=== PATIENT | female | born 1960 ===

== ENCOUNTER 2024-04-06 07:38 | Outpatient (AMB) | payer BC, SELFPAY ==
--- NOTE | 2024-04-06 08:14 | A.OFFVIS_ITS ---
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 She started with neck pain around 2009 and in 2014 she saw a neurologist Dr. Chu at [facility] She had MRI Brain in 2014 which showed white matter changes. she was later seen by Dr. Serrano and treated with Botox with good response. After Dr. Soto retired, she saw Dr. Pérez and then transferred to Dr. [place] Delgadillo at [facility] - who left 1 year ago . Her last treatment with Botox with Jan 2023 . Since then she has been having pain , stiffness, tremors in her neck and wants to restart Botox. when her neck is worse she also has some facial numbness . she was evaluated for facial numbness in 2014. she has occasional off balance.she denies urinary incontinence. [facility] Medical History Squamous cell carcinoma in situ Lyme disease Cervical spinal stenosis Breast cancer in female Asthma Surgical History H/O hernia repair History of carpal tunnel release H/O breast biopsy H/O lumpectomy Hx of colonoscopy H/O shoulder surgery Family History Mother Hyperlipidemia HTN (hypertension) Father CAD (coronary artery disease) HTN (hypertension) Brother Asthma HTN (hypertension) Brother Asthma HTN (hypertension) Brother Asthma HTN (hypertension) Son Asthma Social History Alcohol intake: current Patient Tobacco Use Status: Never used Tobacco Physical Exam Vital Signs: Last Vital Signs BP 130/80 04/06/24 08:17 BMI result Body Mass Index 22.4 Const General: cooperative, healthy appearing, comfortable and no acute distress Nutritional Appearance: average body habitus Orientation/consciousness: patient oriented x3 Eyes Pupils: Equal, round and reactive pupils present Neuro Other: right laterocollis and mild retrocollis torticollis Head tremors Tenderness and tightness in right levator splenius, left occipitalis, semispinal is General: patient oriented x3, gait normal, tone normal, moves all extremities and no focal motor deficits Cranial nerves: Yes Facial sensation intact/muscles of mastication intact, Yes Equal, round and reactive pupils present, Yes Bilaterally intact EOM present, Yes Nystagmus not present, Yes Normal facial strength present, Yes Midline tongue present, Yes Symmetric palate elevation present and Yes Ability to bilaterally elevate shoulders present Cognition (Neuro): normal cognition Gait exam (Neuro): Normal gait present Motor exam (neuro): 5/5 motor strength present throughout and Normal motor muscle tone present throughout Deep tendon reflexes (DTR's): Right triceps reflex intensity grade: 2+, Left triceps reflex intensity grade: 2+, Rt Biceps (C5, C6): 2+, Left biceps reflex intensity grade: 2+, Right brachioradialis reflex intensity grade: 2+, Left brachioradialis reflex intensity grade: 2+, Right patellar reflex intensity grade: 2+ and Left patellar reflex intensity grade: 2+ Coordination: [id number] test normal Assessment & Plan Assessment & Plan (1) Cervical dystonia: Code(s): G24.3 - Spasmodic torticollis Category: Medical (2) Cervicalgia: Code(s): M54.2 - Cervicalgia Category: Medical Plan Reviewed notes from Dr. Delgadillo and I will schedule her for MRI C spine Get prior approval form insurance and restart BOTOX for her neck. Orders: Orders MR cervical spine wo con Today G24.3 - Spasmodic torticollis, M54.2 - Cervicalgia Coding Level of Care Code New Pt Level 4 (36901) Complex EM visit Add On G2211 Diagnoses Cervical dystonia G24.3 Cervicalgia M54.2
[2024-04-06 08:17] VITALS: BP 130/80; BMI 22.4
== END 2024-04-06 10:06 | disposition home or self-care (01) ==
PROVIDERS: PCP Nurse Practitioner Adult Health; Visit Provider Psychiatry & Neurology Neurology
DX: G24.3 Spasmodic torticollis (principal); M54.2 Cervicalgia
CPT/HCPCS: 99204

== ENCOUNTER 2024-04-23 08:15 | Outpatient (AMB) | payer BC, SELFPAY ==
--- NOTE | 2024-04-23 08:16 | A.OFFVIS_ITS ---
Vital Signs 04/23/24 08:17 Height 5 ft 3 in Weight 126 lb BMI 22.3 Intake Visit Reasons: Botox Intake Note: Patient presents for Botox injection. Allergies morphine Allergy (Mild, Uncoded 04/23/24 08:25) Rash HPI Comments Details: ? 64y/o female comes here for treatment of her cervical dystonia with botox. Side effects including spread of toxin effect, dysphagia, breathing difficulties , bronchitis etc was discussed in detail and the patient agreed to the procedure.An informed consent was obtained ??? Botulinum toxin type A 200units X 1 -was diluted with 2 cc of normal saline at a concentration of 25 units in 0.5cc saline. Lot number [id number] expiration 06/2026 ??? Muscles injected ??? mario Splenius - 25 units each ??? left levator 50 units each right levator 25 Left semispinalis 25 units Left trapezius 25 units Right trapezius 25 units ? Total used 200 units PFS Medical History Cervical dystonia Cervicalgia Squamous cell carcinoma in situ Lyme disease Cervical spinal stenosis Breast cancer in female Asthma Surgical History H/O hernia repair History of carpal tunnel release H/O breast biopsy H/O lumpectomy Hx of colonoscopy H/O shoulder surgery Family History Mother Hyperlipidemia HTN (hypertension) Father CAD (coronary artery disease) HTN (hypertension) Brother Asthma HTN (hypertension) Brother Asthma HTN (hypertension) Brother Asthma HTN (hypertension) Son Asthma Social History Alcohol intake: current Patient Tobacco Use Status: Never used Tobacco Physical Exam Vital Signs: BMI result Body Mass Index 22.3 Const General: cooperative, healthy appearing, comfortable and no acute distress Nutritional Appearance: average body habitus Orientation/consciousness: patient oriented x3 Neuro Other: right laterocollis and mild retrocollis torticollis Head tremors Tenderness and tightness in right levator splenius, left occipitalis, semispinalis General: patient oriented x3, gait normal, tone normal, moves all extremities and no focal motor deficits Cognition (Neuro): normal cognition Gait exam (Neuro): Normal gait present Motor exam (neuro): 5/5 motor strength present throughout and Normal motor m uscle tone present throughout Coordination: [id number] test normal Office Procedures Botulinum toxin Injection 84488 - Migraine Procedure code (CPT) selection complete Office Meds onabotulinumtoxinA 200 unit solution for injection Performing Provider: Nusrat Delgado MD Performing Location: [facility] Administered by: Nusrat Delgado MD on 04/23/24 09:01 Dose Route Admin Location Dispensed Lot Number Expiration Date [facility] [place] 200 unit IM 200 units [id number] ALLERGAN/BOTOX Comments: see hpi Assessment & Plan Assessment & Plan (1) Cervical dystonia: Code(s): G24.3 - Spasmodic torticollis Category: Medical Plan Patient tolerated the procedure well she will call with any side effects Orders: Orders AMB Botulinum toxin Injection - Patient Supplied N/C Today G24.3 - Spasmodic torticollis Medications: New onabotulinumtoxinA 200 units IM ONCE 1 ea 0RF cervical dystonia G24.3 - Spasmodic torticollis Coding Level of Care Code Est Pt Level 1 (10020) Diagnoses Cervical dystonia G24.3 CPT Codes Botox Injection - Botox 3: 48627 - Migraine ([id number])
[2024-04-23 08:17] VITALS: BMI 22.3
--- OUTSIDE RECORDS SUMMARY | 2024-04-23 08:23 | XMS_ITS | Continuity of Care Document ---
Author Organization [place] - [facility], [address] floor Address [address] [place] [address] Care Team Providers Care Cardiac Nurse Name Role Phone [facility] Primary Care Provider Assessment Encounter Date Assessment Date Assessment LastModified by Organization Details LastModified Time 04/20/2024 04/20/2024 CC Right elbow pain, arthritis post traumatic, for corticosteroid injection HPI 64 y/o female reports stable symptoms since last visit. Electic to continue with regular steroid injections for elbow pain relief. EXAM Right upper extremity elbow enlarged mild, no effusion, ROM 0-140 with full forearm rotation, no warmth A/P Right elbow post traumatic osteoarthritis. Symptoms managed to patient satisfaction with corticosteroid injections. Procedure note Right elbow - betadine prep injection over lateral joint and over ulnohumeral joint, and admixture of 1 cc kenalog 40 mg/cc and 1 cc local anesthetic total, given at the two sites, tolerated well Recheck in 3-4 mos/likely repeat injection Not available 04/20/2024 14:46:36 Plan of Treatment Reminders Order Date Submit Date Provider Last Modified By Organization Details Last Modified Time Details Appointments RECHECK 15 2024 01:00P Shayy Hong MD Not available Not available Not available Lab None recorded . Referral None recorded . Procedures None recorded . Surgeries None recorded . Imaging XR, elbow, 3 or more view - rt elbow 3v recheck 315 2023 024 yaw [facility], [address], [address], [place], [address], 04/20/2024 14:52:21 Medication Orders None recorded . Patient TargetsNo targets recorded. Patient InstructionsNo instructions recorded. Reason for Referral None Reported. Problems Name Problem SNOMED Code Status Onset Date Resolution Date Notes Provider Name and Address Organization Details Recorded Time Elbow fracture 666384877 Active 2023 Kina Hong MD [facility] [address], [facility] [place], [address] , [facility] 4 11:22:19 Closed fracture of head of right radius 636853693165 Active 2015 Problem Code: S52.121D ; Problem Code Type: ICD-10; Status: 'A'; Not Available [facility] 4 11:12:54 Closed fracture of proximal end of right ulna 224905256196 28050 Active 2015 Problem Code: S52.001A ; Problem Code Type: ICD-10; Status: 'A'; Not Available [facility] 4 11:12:55 Loosening of prosthesi s 239735173 Active 2016 Problem Code: T84.038A ; Problem Code Type: ICD-10; Status: 'A'; Not Available [facility] 4 11:12:55 Sprain of right ankle 211517702963 30251 Active 2015 Problem Code: S93.491D ; Problem Code Type: ICD-10; Status: 'A'; Not Available [facility] 4 11:12:55 Sprain, elbow joint, medial collatera l ligament 199902907 Active 2015 Problem Code: S53.441D ; Problem Code Type: ICD-10; Status: 'A'; Not Available [facility] 4 11:12:55 Closed fracture of proximal end of ulna 60947749 Active 2015 Problem Code: S52.001D ; Problem Code Type: ICD-10; Status: 'A'; Not Available [facility] 4 11:12:56 Pain in right hip joint 804275740841 102 Active 2015 Problem Code: M25.551; Problem Code Type: ICD-10; Status: 'A'; Not Available [facility] 4 11:12:56 Contractu re of right elbow joint 455278314988 100 Active 2016 Problem Code: M24.521; Problem Code Type: ICD-10; Status: 'A'; Not Available [facility] 4 11:12:56 Post traumatic osteoarth ritis 543664909 Active 2018 Problem Code: M19.121; Problem Code Type: ICD-10; Status: 'A'; Not Available [facility] 4 11:12:56 Problem Notes None recorded. Medical Equipment None Reported. Allergies Allergen ID Allergen Name Allergen Category Reaction Reaction Severity Criticality Documentation Date Start Date Code Code System Note Provider Name and Address Organization Details Recorded Time 522019 morphine sulfate medicatio n Not available Not available Not available 10/14/20232023 40751 RxNorm Not Available [facility] 4 09:09:11 57074 morphine sulfate medicatio n Not available Not available Not available 06/23/20232009 76814 RxNorm AIDA ovalles [place] - [facility] 4 10:52:46 Medications Name Sig Start Date Stop Date Status Note LastModified by Organization Details LastModified Time meloxicam 15 mg tablet TAKE 1 TABLET BY MOUTH DAILY active Not Available Not Available No t Available lorazepam 1 mg tablet TAKE 1 TABLET BY MOUTH TWICE DAILY NEEDED FOR ANXIETY active Not Available Not Available No t Available propranolol 20 mg tablet TAKE 1 TABLET BY MOUTH TWICE DAILY active Not Available Not Available No t Available magnesium active Not Available Not Landy ilable Not Available Calcium 600 active Not Available Not A vailable Not Available Vitamin D3 active Not Available Not Av ailable Not Available multivitamin active Not Available Not Available Not Available collagen active Not Available Not Avai lable Not Available oxycodone HCl-oxycodon e-ASA 1 TAB PO QID 09/15 completed Statu s: 'Curr ent'; Not Available Not Available Not Available GaviLyte-G 236 gram-22.74 gram-6.74 gram-5.86 gram oral solution 09/15 completed Not Available Not Available Not Available Botox 200 unit injection active Not Available Not Available No t Available B12 active Not Available Not Availa ble Not Available Vitals Date Recorded Body height Body mass index (BMI) Body weight Provider Name and Address Organization Details Last Updated DateTime 04/20/2024 162.56 cm 20.3 kg/m2 43285.9 g AIDA GILBERT [place] - [facility] 04/20/2024 10:22:59 Social History None recorded. Functional Status None recorded. Mental Status None recorded. Family History Nothing Reported. Medical History Condition Response Allergies/Hayfever N Coronary Artery Disease N Anxiety/Depression N Breathing or lung disorders N Emphysema N Nerve Disorders N Thyroid Problems N COPD N Pacemaker N Anemia N Kidney/Bladder Problems N Vascular Disease N Heart Trouble N Heart Attack ([place]) N Gastrointestinal Disease N Cholesterol N Diabetes N Autoimmune disease N Bleeding Disorder N Inflammatory Joint disease N Orthotics N Arthritis Y Seizures/Epilepsy N Blood Clot N AIDS/HIV N Congestive Heart Failure (CHF) N Acid Reflux (GERD) N Cancer Y Stroke N Asthma N Circulation Problems N Peripheral Vascular Disease N Sleep Apnea N Hepatitis N Heart Disease N Rheumatoid Arthritis N Arrhythmia N Pulmonary Embolism N Headaches N Fibromyalgia N Hypertension Y Osteoporosis N Gynecological HistoryNo gynecological history recorded. Obstetrics History GPAL:G 0 P 0 0 0 0 Past Encounters Encounter ID Performer Location Encounter Start Date Encounter Closed Date Diagnosis/Indication Diagnosis SNOMED-CT Code Diagnosis ICD10 Code [id number] Kina Hogn [facility] [address] [place] [address] 04/20/2024 10:13:45 04/20/2024 14:47:09 Elbow fracture 040467732 S42.401D Health Concerns Section Related Observation LastModified by Organization Detai ls LastModified Time None Recorded Concern Status LastModified by Organization Details LastModified Time None Recorded Payers Encounter Date Sequence Insurance Name Policy Number Policy Diaz Covered Member ID Diaz Member ID Guarantor Name 04/20/2024 1 [place] [id number] Orlin Isaacs [id number] Samina Isaacs OBGyn Episode No OBEpisode recorded.
--- OUTSIDE RECORDS SUMMARY | 2024-04-23 08:23 | XMS_ITS | Data Portability ---
Author Organization [place] [facility] Address [address] [place] [address] Care Team Providers Care Manuscript Reader Name Role Phone [facility] Primary Care Provider Assessment Encounter Date Assessment Date Assessment LastModified by Organization Details LastModified Time 09/16/2023 09/16/2023 CC Right elbow pain, arthritis post traumatic, injection HPI 63 y/o woman more than 2 years s/p right elbow fx dislocation, ORIF, with early progression to OA, removal of radial head prosthesis, evaluated with Dr. Jack [facility] for reconstruction, prefers nonoperative management, symptoms maanged with periodic/sachedul ed CSI Reports increase lateral elbow pain about three weeks ago, since immproved, no clear reltaiton to activity or other EXAM Right upper extremity elbow enlarged, no effusion, ROM 0-140 with full forearm rotation, no warmth XRAYS ordered obtained reviewed by me R elbow three veiws show progresssive degenerative errosive ulnohumeral changes and absent radial head A/P Right elbow post traumatic osteoarthitis. No sigifniciatn changes on xrays compared to last ~ 2 years ago. Symptoms recently increased but since resolved. Continue with csi, patient preference Procedure note Right elbow - betadine prep injection over lateral joint and over ulno humeral joint, and admixture of 1 cc kenalog 40 mg/cc and 1 cc local anesthesitic total given at the two sites, tolerated well Recheck in 3 mos/likely repeat injection Not available 09/17/2023 17:44:13 12/16/2023 12/16/2023 CC Right elbow pain, arthritis post traumatic, for corticosteroid injection HPI 63 y/o woman more than 2 years s/p right elbow fx dislocation, ORIF, with early progression to OA, removal of radial head prosthesis, evaluated with Dr. Jack [facility] for reconstruction, prefers nonoperative management, symptoms maanged with periodic/sachedul ed CSI Since last visit reports right elbow symptoms stable. Right elbow injections continue to provide symptom relief. EXAM Right upper extremity elbow enlarged mild, no effusion, ROM 0-140 with full forearm rotation, no warmth A/P Right elbow post traumatic osteoarthritis. No significant changes on xrays compared to last ~ 2 years ago. Symptoms remain stable and positively affected by corticosteroid injection. Procedure note Right elbow - betadine prep injection over lateral joint and over ulnohumeral joint, and admixture of 1 cc kenalog 40 mg/cc and 1 cc local anesthetic total, given at the two sites, tolerated well Recheck in 3-4 mos/likely repeat injection Not available 12/19/2023 11:32:02 04/20/2024 04/20/2024 CC Right elbow pain, arthritis [...] well Recheck in 3-4 mos/likely repeat injection [email or web address] Not available 04/20/2024 14:46:36 Plan of Treatment [...] rt elbow 3v recheck 315 2023 024 [facility], [address], [address], [place], [address], 09/25/2023 16:00:10 XR, elbow, 3 or more view - rt elbow 3v recheck 315 2023 024 [email or web address] [facility], [address], [address], [place], [address], 12/19/2023 12:02:41 XR, elbow, 3 or more view - rt elbow 3v recheck 315 2023 024 [email or web address] [facility], [address], [place], [address], 04/20/2024 14:52:21 Medication Orders None recorded . Patient TargetsNo targets recorded. Patient InstructionsNo instructions recorded. Reason for Referral None Reported. Results Created Date Observation Date Name Description Value Unit Range Abnormal Flag Note LastModifiedBy Organization Detail LastModifiedTime 12/20/19 24 04/19/2019 imagi ng/di agnos tic resul t No observ ation record ed. [email or web address] Not Available 11/21 06:31:34 12/20/1903/30/2019 imagi ng/di agnos tic resul t No observ ation record ed. [email or web address] Not Available 11/21 06:31:36 12/20/19 24 04/09/2019 imagi ng/di agnos tic resul t No observ ation record ed. [email or web address] Not Available 11/21 06:31:37 12/20/1904/06/2019 imagi ng/di agnos tic resul t No observ ation record ed. [email or web address] Not Available 11/21 06:31:38 Result Notes None recorded. Problems Name Problem SNOMED Code Status Onset Date Resolution Date Notes Provider Name and Address Organization Details Recorded Time Elbow fracture 079057480 Active 2023 Kina Hong MD [address], [place], [address] , [facility] 4 11:22:19 Closed fracture of head of right radius 870194902367 98541 Active 2015 Problem Code: S52.121D ; Problem Code Type: ICD-10; Status: 'A'; Not Available [employer] 4 11:12:54 Closed fracture of proximal end of right ulna 532325480382 65106 Active 2015 Problem Code: S52.001A ; Problem Code Type: ICD-10; Status: 'A'; Not Available [facility] 4 11:12:55 Loosening of prosthesi s 051038326 Active 2016 Problem Code: T84.038A ; Problem Code Type: ICD-10; Status: 'A'; Not Available [facility] 4 11:12:55 Sprain of right ankle 441777954105 35914 Active 2015 Problem Code: S93.491D ; Problem Code Type: ICD-10; Status: 'A'; Not Available [facility] 4 11:12:55 Sprain, elbow joint, medial collatera l ligament 999955556 Active 2015 Problem Code: S53.441D ; Problem Code Type: ICD-10; Status: 'A'; Not Available [facility] 4 11:12:55 Closed fracture of proximal end of ulna 84054459 Active 2015 Problem Code: S52.001D ; Problem Code Type: ICD-10; Status: 'A'; Not Available [facility] 4 11:12:56 Pain in right hip joint 341068420222 102 Active 2015 Problem Code: M25.551; Problem Code Type: ICD-10; Status: 'A'; Not Available [facility] 4 11:12:56 Contractu re of right elbow joint 386076217245 100 Active 2016 Problem Code: M24.521; Problem Code Type: ICD-10; Status: 'A'; Not Available [facility] 4 11:12:56 Post traumatic osteoarth ritis 138186681 Active 2018 Problem Code: M19.121; Problem Code Type: ICD-10; Status: 'A'; Not Available [facility] 4 11:12:56 Problem Notes None recorded. Procedures Surgical History None recorded. Imaging Results Imaging Date Name Status LastModified by [facility] Details LastModified Time 04/19/2019 imaging/diag nostic result completed Information not available 12/20/2023 06:31:34 2019 imaging/diag nostic result completed Information not available 12/20/2023 06:31:36 04/09/2019 imaging/diag nostic result completed Information not available 12/20/2023 06:31:37 04/06/2019 imaging/diag nostic result completed Information not available 12/20/2023 06:31:38 Procedure Notes None recorded. Medical Equipment None Reported. Allergies Allergen ID Allergen Name Allergen Category Reaction Reaction Severity Criticality Documentation Date Start Date Code Code System Note Provider Name and Address Organization Details Recorded Time 175223 morphine sulfate medicatio n Not available Not available Not available 10/14/20232023 69927 RxNorm Not Available [facility] 09:09:11 38147 morphine sulfate medicatio n Not available Not available Not available 06/23/20232009 62500 RxNorm AIDA ovalles [place] [facility] 10:52:46 Medications Name Sig Start Date Stop [...] Not Available Vitals Date Recorded Body height Provider Name an d Address Organization Details Last Updated DateTime 09/16/2023 162.56 cm AIDA GILBERT [facility] 09/16/2023 10:18:48 Date Recorded Body height Body mass index (BMI) Body weight Provider Name and Address Organization Details Last Updated DateTime 12/16/2023 162.56 cm 20.3 kg/m2 43438.9 g AIDA GILBERT [facility] 12/16/2023 10:52:42 Date Recorded Body height Body mass index (BMI) Body weight Provider Name and Address Organization Details Last Updated DateTime 04/20/2024 162.56 cm 20.3 kg/m2 32510.9 g AIDA GILBERT [facility] 04/20/2024 10:22:59 Social History None recorded. Functional Status None recorded. Mental Status None recorded. Family History Nothing Reported. Medical History Condition Response Allergies/Hayfever N Coronary Artery Disease N Breathing or lung disorders N Anxiety/Depression N Emphysema N Nerve Disorders N Thyroid Problems N COPD N Pacemaker N Kidney/Bladder Problems N Anemia N Vascular Disease N Heart Trouble N Gastrointestinal Disease N Heart Attack (VT) N Cholesterol N Diabetes N Autoimmune disease [...] Diagnosis/Indication Diagnosis SNOMED-CT Code Diagnosis ICD10 Code [id number] MD Radha Ravi [address] [place] [address] 09/16/2023 10:00:32 09/25/2023 16:00:09 Elbow fracture 683928659 S42.401D [id number] MD Radha Ravi [address] [place] [address] 12/16/2023 10:30:45 01/07/2024 14:56:14 Elbow fracture 058318227 S42.401D [id number] MD Radha Ravi [address] [place], [place] [address] 04/20/2024 10:13:45 04/20/2024 14:47:09 Elbow fracture 483344641 S42.401D Health Concerns Section Related Observation LastModified by Organization Detai ls LastModified Time None Recorded Concern Status LastModified by Organization Details LastModified Time None Recorded Advance Directives Directive None Recorded Payers Encounter Date Sequence Insurance Name Policy Number Policy Diaz Covered Member ID Diaz Member ID Guarantor Name 09/16/2023 1 [place] [id number] Orlin Isaacs [id number] Saminakiera Phippser 12/16/2023 1 [place] [id number] Orlin Isaacs [id number] Saminakiera Phippser 04/20/2024 1 [place] [id number] Orlin Isaacs [id number] Samina Isaacs OBGyn Episode No OBEpisode recorded.
== END 2024-04-23 08:48 | disposition home or self-care (01) ==
PROVIDERS: PCP Nurse Practitioner Adult Health; Visit Provider Psychiatry & Neurology Neurology
DX: G24.3 Spasmodic torticollis (principal)

== ENCOUNTER → 2024-04-23 08:15 | Outpatient (BNVA) | payer BC, SELFPAY | PROVIDERS: PCP Nurse Practitioner Adult Health; Visit Provider Psychiatry & Neurology Neurology | DX: G24.3 Spasmodic torticollis (principal) | CPT/HCPCS: 64616; 99211; J0585 ==

== ENCOUNTER → 2024-05-31 09:25 | Outpatient (BNV) | payer BC, SELFPAY | PROVIDERS: Visit Provider Radiology Diagnostic Radiology | DX: M54.2 Cervicalgia (principal) | CPT/HCPCS: 72141 ==

== ENCOUNTER 2024-05-31 09:39 | Outpatient (REF) | payer BC, SELFPAY | END 2024-05-31 09:40 | disposition home or self-care (01) | LOC: HO.MRI 09:39 | PROVIDERS: Visit Provider Psychiatry & Neurology Neurology | DX: M54.2 Cervicalgia (principal); G24.3 Spasmodic torticollis | CPT/HCPCS: 72141 ==

== ENCOUNTER 2024-08-10 09:12 | Outpatient (AMB) | payer BC, SELFPAY ==
--- NOTE | 2024-08-10 09:13 | MHC.OFFVIS ---
Vital Signs 08/10/24 09:14 Height 5 ft 3 in Weight 130 lb BMI 23.0 Pulse 62 Pulse Source Pulse Oximeter Pulse Oximetry (%) 98 Oxygen Delivery Method Room Air Intake Visit Reasons: Botox Intake Note: patient presents for Botox injection patient supplied Allergies morphine Allergy (Mild, Uncoded 08/10/24 09:16) Rash Medication List - Last Reconciled 08/10/24 by Nusrat Delgado MD lorazepam 1 mg PO BID magnesium chloride 64 mg PO DAILY meloxicam 7.5 mg PO DAILY onabotulinumtoxinA (Botox) 200 units IM ONCE 84 days propranolol 10 mg PO ONCE HPI Comments Details: ? 64y/o female comes here for treatment of her cervical dystonia with botox. Side effects including spread of toxin effect, dysphagia, breathing difficulties , bronchitis etc was discussed in detail and the patient agreed to the procedure.An informed consent was obtained ??? Botulinum toxin type A 200units X 1 -was diluted with 2 cc of normal saline at a concentration of 25 units in 0.5cc saline. Lot number [id number] expiration 07/2026 ??? Muscles injected ??? mario Splenius - 25 units each ??? left levator 50 units each right levator 25 Left semispinalis 25 units Left trapezius 25 units Right trapezius 25 units ? Total used 200 units [facility] Medical History Cervical dystonia Cervicalgia Squamous cell carcinoma in situ Lyme disease Cervical spinal stenosis Breast cancer in female Asthma Surgical History H/O hernia repair History of carpal tunnel release H/O breast biopsy H/O lumpectomy Hx of colonoscopy H/O shoulder surgery Family History Mother Hyperlipidemia HTN (hypertension) Father CAD (coronary artery disease) HTN (hypertension) Brother Asthma HTN (hypertension) Brother Asthma HTN (hypertension) Brother Asthma HTN (hypertension) Son Asthma Social History Alcohol intake: current Patient Tobacco Use Status: Never used Tobacco Physical Exam Vital Signs: Last Vital Signs Pulse 62 08/10/24 09:14 Pulse Ox 98 08/10/24 09:14 Oxygen Delivery Method Room Air 08/10/24 09:14 BMI result Body Mass Index 23.0 Const General: cooperative, healthy appearing, comfortable and no acute distress Nutritional Appearance: average body habitus Orientation/consciousness: patient oriented x3 Neuro Other: right laterocollis and mild retrocollis torticollis Head tremors Tenderness and tightness in right levator splenius, left occipitalis, semispinalis General: patient oriented x3, gait normal, tone normal, moves all extremities and no focal motor deficits Cognition (Neuro): normal cognition Gait exam (Neuro): Normal gait present Motor exam (neuro): 5/5 motor strength present throughout and Normal motor muscle tone present throughout Coordination: [id number] test normal Office Procedures Botulinum toxin Injection 83085 - Dystonia Procedure code (CPT) selection complete Office Meds onabotulinumtoxinA 200 unit solution for injection Performing Provider: Nusrat Delgado MD Per[facility]: [facility] Administered by: Nusrat Delgado MD on 08/10/24 09:50 Dose Route Admin Location Dispensed Lot Number Expiration Date [facility] Respiratory Support Technician 200 unit IM 200 units [id number] [employer]/BOTOX Comments: see HPI Assessment & Plan Assessment & Plan (1) Cervical dystonia: Code(s): G24.3 - Spasmodic torticollis Category: Medical Plan Patient tolerated the procedure well she will call with any side effects Orders: Orders AMB Botulinum toxin Injection - Patient Supplied N/C Today G24.3 - Spasmodic torticollis Medications: New onabotulinumtoxinA 200 units IM ONCE 1 ea 0RF spasmodic torticollis G24.3 - Spasmodic torticollis Coding Level of Care Code Est Pt Level 1 (82525) Diagnoses Cervical dystonia G24.3 CPT Codes Botox Injection - Botox 4: 33304 - Dystonia ([id number])
[2024-08-10 09:14] VITALS: PULSE 62; O2SAT 98; BMI 23.0
== END 2024-08-10 09:47 | disposition home or self-care (01) ==
LOC: HO.HSMS 09:12
PROVIDERS: PCP Nurse Practitioner Adult Health; Visit Provider Psychiatry & Neurology Neurology
DX: G24.3 Spasmodic torticollis (principal)
CPT/HCPCS: 64616

== ENCOUNTER → 2024-08-10 09:12 | Outpatient (BNVA) | payer BC, SELFPAY | PROVIDERS: PCP Nurse Practitioner Adult Health; Visit Provider Psychiatry & Neurology Neurology | DX: G24.3 Spasmodic torticollis (principal) | CPT/HCPCS: 64616; 99211; J0585 ==

== ENCOUNTER 2024-11-09 08:46 | Outpatient (AMB) | payer BC, SELFPAY ==
[2024-11-09 08:52] VITALS: BP 120/70; PULSE 99; O2SAT 63; BMI 22.3
--- NOTE | 2024-11-09 08:52 | A.OFFVIS_ITS ---
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 64y/o female comes here for treatment of her cervical dystonia with botox. Side effects including spread of toxin effect, dysphagia, breathing difficulties , bronchitis etc was discussed in detail and the patient agreed to the pro cedure.An informed consent was obtained ??? Botulinum toxin type A 200units X 1 -was diluted with 2 cc of normal saline at a concentration of 25 units in 0.5cc saline. Lot number [id number] expiration 07/2026 ??? Muscles injected ??? mario Splenius - 25 units each ??? left levator 50 units each right levator 25 Left semispinalis 25 units Left trapezius 25 units Right trapezius 25 units ? Total used 200 units [facility] Medical History Cervical dystonia Cervicalgia Squamous cell carcinoma in situ Lyme disease Cervical spinal stenosis Breast cancer in female Asthma Surgical History H/O hernia repair History of carpal tunnel release H/O breast biopsy H/O lumpectomy Hx of colonoscopy H/O shoulder surgery Family History Mother Hyperlipidemia HTN (hypertension) Father CAD (coronary artery disease) HTN (hypertension) Brother Asthma HTN (hypertension) Brother Asthma HTN (hypertension) Brother Asthma HTN (hypertension) Son Asthma Social History Alcohol intake: current Patient Tobacco Use Status: Never used Tobacco Physical Exam Vital Signs: Last Vital Signs Pulse 99 11/09/24 08:52 BP 120/70 11/09/24 08:52 Pulse Ox 63 L 11/09/24 08:52 Oxygen Delivery Method Room Air 11/09/24 08:52 BMI result Body Mass Index 22.3 Const General: cooperative, healthy appearing, comfortable and no acute distress Nutritional Appearance: average body habitus Orientation/consciousness: patient oriented x3 Neuro Other: right laterocollis and mild retrocollis torticollis Head tremors Tenderness and tightness in right levator splenius, left occipitalis, semispinalis General: patient oriented x3, gait normal, tone normal, moves all extremities and no focal motor deficits Cognition (Neuro): normal cognition Gait exam (Neuro): Normal gait present Motor exam (neuro): 5/5 motor strength present throughout and Normal motor muscle tone present throughout Coordination: [id number] test normal Office Procedures Botulinum toxin Injection 69684 - Dystonia Procedure code (CPT) selection complete Office Meds onabotulinumtoxinA 200 unit solution for injection Performing Provider: Nusrat Delgado MD Performing Location: [facility] Administered by: Nusrat Delgado MD on 11/09/24 15:45 Dose Route Admin Location Dispensed Lot Number Expiration Date [facility] Asphalt Tile Floor Layer 200 unit IM 200 units [id number] [employer] /BOTOX Total Dispensed Waste 200 units 0 % Comments: see HPI Assessment & Plan Assessment & Plan (1) Cervical dystonia: Code(s): G24.3 - Spasmodic torticollis Category: Medical Plan Patient tolerated the procedure well she will call with any side effects Orders: Orders AMB Botulinum toxin Injection - Patient Supplied N/C Today G24.3 - Spasmodic torticollis Coding Level of Care Code Est Pt Level 1 (84698) Diagnoses Cervical dystonia G24.3 CPT Codes Botox Injection - Botox 4: 04939 - Dystonia ([id number])
--- OUTSIDE RECORDS SUMMARY | 2024-11-09 09:06 | XMS_ITS | Data Portability ---
Author Organization [place] - Donnie Lucia [facility], [facility] Address [address] [place] [address] Care Team Providers Care Yarn Rewinder Name Role Phone [facility] Primary Care Provider Assessment Encounter Date Assessment Date Assessment LastModified by Organization Details LastModified Time 09/16/2023 09/16/2023 CC Right elbow pain, arthritis post traumatic, injection HPI 63 y/o woman more than 2 years s/p right elbow fx dislocation, ORIF, with early progression to OA, removal of radial head prosthesis, [place] [facility] [place], prefers nonoperative management, symptoms maanged [...] well Recheck in 3 mos/likely repeat injection [email or web address] Not available 09/17/2023 17:44:13 12/16/2023 12/16/2023 CC Right elbow pain, arthritis post traumatic, for corticosteroid injection HPI 63 y/o woman more than 2 years s/p right elbow fx dislocation, ORIF, with early progression to OA, removal of radial head prosthesis, [place] [facility], prefers nonoperative management, symptoms maanged [...] well Recheck in 3-4 mos/likely repeat injection [email or web address] Not available 12/19/2023 11:32:02 04/20/2024 04/20/2024 CC [...] mos/likely repeat injection Not available 04/20/2024 14:46:36 07/13/2024 07/13/2024 SUBJECTIVE Chief Complaint Tooth complaint for injection Right elbow Post traumatic arthritis History of Present Illness The patient reports increased right elbow pain over the months of April and May. Pain symptoms have since subsided to baseline level. She also noticed increased swelling through the lateral elbow with a firm nodular consistency associated with increased pain symptoms. She continues to consider pursuing reconstructive elbow surgery, which a previous upper extremity cyber forensic specialist recommended would be a total elbow arthroplasty. Yet, she remains reluctant to move forward with the step given the potential risk and impact on activity. She also indicates that she had increased neck symptoms in the same months and she continues follow-up care for her neck issues with another physician. She denies fever, chills, or night sweats. OBJECTIVE Examination Right upper extremity elbow swelling, effusion with crepitus on motion, and a near normal range of elbow and forearm motion. 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 It seems like arthritis symptoms were increased over the past few months but have since subsided to a more manageable level. She remains considering reconstructive surgery and understands referral to a specialist would be necessary, but she's not ready to make such a commitment at this point. PLAN The patient wishes to move forward with the steroid injection as she has done every three months for the past several years. She would like to go ahead with corticosteroid injections feeling that these continue to provide a level of symptomatic benefit. Procedure Note Right elbow corticosteroid injection: An admixture of Kenalog 0.5 cc and 40 milligram per cc concentration with 1.5 cc lidocaine 1% was given after Betadine skin prep through the lateral elbow joint. A second injection of the same concentration admixture of 0.5 cc Kenalog 40 mg per cc and 0.5 cc Lidocaine 1% was given through the posterior elbow approach after skin prep. Recheck in three months. [email or web address] Not available 07/13/2024 15:59:24 10/13/2024 10/13/2024 Right elbow post traumatic arthritis - for injection HPI Since last visit she reports less pain Continues to have anterior elbow upper forearm swelling/fullness Continues to have no ROM restriction Bothered by appearance, weakness Exam R UE elbow effusion, no warmth, ROM extension full and flexion least 135 degrees with full forearm pro/sup Xrays ordered obtained and reviewed by me today at [facility] R elbow three views show the olecranon erosive changes with loss of concentric ulnohumeral joint, radial head absence A/P Right elbow arthritis due to trauma with symptoms including swelling/stable and likely effusion, weakness/instabil ity, but good motion; have discussed end stage surgical treatment with arthroplasty but given function and expectations recommend against at least at this time, continues to prefer injections/cortis one seeing a response to this treatment Procedure note right elbow betadine prep for two injections divided doses of 1 cc kenalog 40mg/cc and 1 cc lidocaine, olecranon fossa and lateral elbow triangle FU 3 mos for injection [email or web address] Not available 10/13/2024 14:44:00 Plan of Treatment Reminders Order Date Submit Date Provider Last Modified By Organization Details Last Modified Time Details Appointments RECHECK 15 2024 01:00P Shayy Hong MD Not available Not available Not available Lab None recorded . Referral None recorded . Procedures None recorded . Surgeries None recorded . Imaging XR, elbow, 3 or more view - 313 rt elbow 3v recheck 2024 025 [email or web address] [facility], [address], [place], [address], 10/26/2024 12:24:18 XR, elbow, 3 or more view - rt elbow 3v recheck 315 2023 024 [email or web address] [facility], [address], [place], [address], 04/20/2024 14:52:21 XR, elbow, 3 or more view - rt elbow 3v recheck 315 2023 024 [email or web address] [facility], [address], [place], [address], 12/19/2023 12:02:41 XR, elbow, 3 or more view - rt elbow 3v recheck 315 2023 024 [email or web address] [facility], [address], [place], [address], 09/25/2023 16:00:10 Medication Orders None recorded . Patient TargetsNo targets recorded. Patient InstructionsNo instructions recorded. Reason for Referral None Reported. Results Created Date Observation Date Name Description Value Unit Range Abnormal Flag Note LastModifiedBy Organization Detail LastModifiedTime 12/20/1904/19/2019 imagi ng/di agnos tic resul t No observ ation record ed. [email or web address] Not Available 11/21 06:31:34 12/20/1903/30/2019 imagi ng/di agnos tic resul t No observ ation record ed. [email or web address] Not Available 11/21 06:31:36 12/20/19 04/09/2019 imagi ng/di agnos tic resul t No observ ation record ed. [email or web address] Not Available 11/21 06:31:37 12/20/1904/06/2019 imagi ng/di agnos tic resul t No observ ation record ed. [email or web address] Not Available 11/21 06:31:38 10/14/19 25 10/13/2024 XR, elbow , 3 or more view http:/ [email or web address] ?Encry pted=s hAaTro YD8dLq bEUv6g %2BXZw aYqtaq 0bqfl% 2Fg9IQ a4ajBk vP9nXo QUaueC m3YtLR FvZlgJ JJ8mAn HZtai3 7g7092 AC0Kla [facility] kKiQtr [facility] INTERFACE [facility] [address] [facility] [address], [place], [address], 10/13/2024 13:16:08 10/14/19 25 10/13/2024 XR, elbow , 3 or more view http:/ [email or web address] ?Encry pted=s hAaTro YD8dLq bEUv6g %2BXZw aYqtaq 0bqfl% 2Fg9IQ a4ajBk vP9nXo QUaueC m3YtLR FvZl JJ8mAn [facility] 1i3692 AC0[facility] kKiQtr [facility] INTERFACE [facility] [address] [facility] [address], [place], [address], 10/13/2024 13:16:10 Result Notes Documentation Provider Name and Address Organization Details Recorded Time Xr, Elbow, 3 Or More View : [email or web address] Encrypted=lfXnXggMM1vCdqS Uv6g%8AIWovCtrri3oqln%2Fg 1VAx5ozCvvY8iMlVNzasMi3Jq NCTgOjsJQO0yHvGUate72w096 9WZ2MbpYNDWIUgYqAyhEwL Not Available [facility] 10/13/2024 13:16: 09 Xr, Elbow, 3 Or More View : [email or web address] Encrypted=fmHoBvgNV5mShwB Uv6g%8TIZmmGtvai4zitc%2Fg 9PBa1xsKenC1rFsSHkthSi4Zc AGUkEyzJNR8fSoNFjzq91v306 2BI5SdmOTRNKNgSqPmoYjJ Not Available [facility] 10/13/2024 13:16: 11 Problems Name Problem SNOMED Code Status Onset Date Resolution Date Notes Provider Name and Address Organization Details Recorded Time Closed fracture of head of right radius 841588395035 01775 Active 2015 Problem Code: S52.121D ; Problem Code Type: ICD-10; Status: 'A'; Not Available [facility] 4 11:12:54 Closed fracture of proximal end of right ulna 018308986372 98959 Active 2015 Problem Code: S52.001A ; Problem Code Type: ICD-10; Status: 'A'; Not Available [facility] 4 11:12:55 Sprain of right ankle 331206995532 88206 Active 2015 Problem Code: S93.491D ; Problem Code Type: ICD-10; Status: 'A'; Not Available [facility] 4 11:12:55 Sprain, elbow joint, medial collatera l ligament 646744712 Active 2015 Problem Code: S53.441D ; Problem Code Type: ICD-10; Status: 'A'; Not Available [facility] 4 11:12:55 Closed fracture of proximal end of ulna 73460269 Active 2015 Problem Code: S52.001D ; Problem Code Type: ICD-10; Status: 'A'; Not Available [facility] 4 11:12:56 Pain of right hip joint 382137659442 102 Active 2015 Problem Code: M25.551; Problem Code Type: ICD-10; Status: 'A'; Not Available [facility] 4 11:12:56 Loosening of prosthesi s 322508836 Active 2016 Problem Code: T84.038A ; Problem Code Type: ICD-10; Status: 'A'; Not Available [facility] 4 11:12:55 Contractu re of right elbow joint 533147448292 100 Active 2016 Problem Code: M24.521; Problem Code Type: ICD-10; Status: 'A'; Not Available [facility] 4 11:12:56 Post traumatic osteoarth ritis 116900766 Active 2018 Problem Code: M19.121; Problem Code Type: ICD-10; Status: 'A'; Not Available [facility] 4 11:12:56 Elbow fracture 144577052 Active 2023 Kina Hong MD [address] [place] [address] [address], [facility] [place], [address] , [facility] 4 11:22:19 Problem Notes None recorded. Medical Equipment None Reported. Allergies Allergen ID Allergen Name Allergen Category Reaction Reaction Severity Criticality Documentation Date Start Date Code Code System Note Provider Name and Address Organization Details Recorded Time 425764 morphine sulfate medicatio n Not available Not available Not available 10/14/20232023 69405 RxNorm Not Available [facility] 4 09:09:11 11741 morphine sulfate medicatio n Not available Not available Not available 06/23/20232009 02798 RxNorm AIDA ovalles [facility] 4 10:52:46 Medications Name Sig Start Date Stop Date Status Note LastModified by Organization Details LastModified Time meloxicam 15 mg tablet TAKE 1 TABLET BY MOUTH DAILY 2024 active Not Available Not Available Not Avai lable lorazepam 1 mg tablet TAKE 1 TABLET [...] and Address Organization Details Last Updated DateTime 07/13/2024 162.56 cm 20.3 kg/m2 28018.9 g AIDA GILBERT [facility] 07/13/2024 12:54:32 Date Recorded Body height Provider Name an d Address Organization Details Last Updated DateTime 09/16/2023 162.56 cm AIDANHUNG GILBERT [facility] 09/16/2023 10:18:48 Date Recorded Body height Body mass index (BMI) Body weight Provider Name and Address Organization Details Last Updated DateTime 10/13/2024 157.48 cm 21.9 kg/m2 97931.08 g AIDANHUNG GILBERT [facility] 10/13/2024 13:06:46 Date Recorded Body height Body mass index (BMI) Body weight Provider Name and Address Organization Details Last Updated DateTime 12/16/2023 162.56 cm 20.3 kg/m2 67470.9 g [facility] 12/16/2023 10:52:42 Date Recorded Body height Body mass index (BMI) Body weight Provider Name and Address Organization Details Last Updated DateTime 04/20/2024 162.56 cm 20.3 kg/m2 57886.9 g [facility] 04/20/2024 10:22:59 Social History None recorded. Functional Status None recorded. Mental Status None recorded. Family History Nothing Reported. Medical History Condition Response Allergies/Hayfever N Coronary Artery Disease N Breathing or lung disorders N Anxiety/Depression N Emphysema N Nerve Disorders N Thyroid Problems N COPD N Pacemaker N Kidney/Bladder Problems N Anemia N Vascular Disease N Heart Trouble N Gastrointestinal Disease N Heart Attack ([place]) N Cholesterol N Diabetes N Autoimmune disease [...] Diagnosis/Indication Diagnosis SNOMED-CT Code Diagnosis ICD10 Code Diagnosis Note [id number] MD Radha Ravi [address] [place] [address] 09/16/2023 10:00:32 09/25/2023 16:00:09 Elbow fracture 082042621 S42.401D [id number] MD Radha Ravi [address] [place] [address] 12/16/2023 10:30:45 01/07/2024 14:56:14 Elbow fracture 922010648 S42.401D [id number] MD Radha Ravi [address] [place] [address] 04/20/2024 10:13:45 05/06/2024 13:01:14 Elbow fracture 805388378 S42.401D [id number] MD HERI Ravi [address] [place] [address] 07/13/2024 12:32:50 07/28/2024 12:51:22 [id number] MD HERI Ravi [address] [place] [address] 10/13/2024 12:40:19 10/26/2024 12:24:18 Pain of elbow region 61984951 M25.521 Health Concerns Section Related Observation LastModified by Organization Detai ls LastModified Time None Recorded Concern Status LastModified by Organization Details LastModified Time None Recorded Advance Directives Directive None Recorded Payers Insurance Date Sequence Insurance Name Policy Number Policy Diaz Covered Member ID Diaz Member ID Guarantor Name 10/26/2024 1 CHAU (PPO) [id number] Orlin Isaacs [id number] Samina Isaacs OBGyn Episode No OBEpisode recorded.
== END 2024-11-09 09:21 | disposition home or self-care (01) ==
LOC: HO.HSMS 08:47
PROVIDERS: PCP Nurse Practitioner Adult Health; Visit Provider Psychiatry & Neurology Neurology
DX: G24.3 Spasmodic torticollis (principal)
CPT/HCPCS: 64616

== ENCOUNTER → 2024-11-09 08:46 | Outpatient (BNVA) | payer BC, SELFPAY | PROVIDERS: PCP Nurse Practitioner Adult Health; Visit Provider Psychiatry & Neurology Neurology | DX: G24.3 Spasmodic torticollis (principal) | CPT/HCPCS: 64616; 99211; J0585 ==

== ENCOUNTER 2025-02-15 10:48 | Outpatient (AMB) | payer BC, SELFPAY ==
--- NOTE | 2025-02-15 10:54 | MHC.OFFVIS ---
Vital Signs 02/15/25 10:55 Height 5 ft 3 in Weight 129 lb 6 oz BMI 22.9 BP 122/80 Blood Pressure Location Rt brachial Position Sitting Pulse 68 Pulse Source Pulse Oximeter Pulse Oximetry (%) 98 Oxygen Delivery Method Room Air Intake Visit Reasons: Botox Intake Note: Botox 200 Pt supplied Maintenance Job Titles Required: No Accompanied by: Self / Same As Patient Allergies morphine Allergy (Mild, Uncoded 02/15/25 10:54) Rash Medication List - Last Reconciled 02/15/25 by Nusrat Delgado MD lorazepam 1 mg PO BID magnesium chloride 64 mg PO DAILY meloxicam 7.5 mg PO DAILY onabotulinumtoxinA (Botox) 200 units IM ONCE 84 days propranolol 10 mg PO ONCE HPI Comments Details: ? 64y/o female comes here for treatment of her cervical dystonia with botox. Side effects including spread of toxin effect, dysphagia, breathing difficulties , bronchitis etc was discussed in detail and the patient agreed to the procedure.An informed consent was obtained ??? Botulinum toxin type A 200units X 1 -was diluted with 2 cc of normal saline at a concentration of 25 units in 0.5cc saline. Lot number [id number] expiration 02/2027 ??? Muscles injected ??? Left Splenius - 25 units each ??? left levator 50 units each\ Left SCM 25 units right levator 25 Left semispinalis 25 units Left trapezius 25 units Right trapezius 25 units ? Total used 200 units PFSH Medical History Cervical dystonia Cervicalgia Squamous cell carcinoma in situ Lyme disease Cervical spinal stenosis Breast cancer in female Asthma Surgical History H/O hernia repair History of carpal tunnel release H/O breast biopsy H/O lumpectomy Hx of colonoscopy H/O shoulder surgery Family History Mother Hyperlipidemia HTN (hypertension) Father CAD (coronary artery disease) HTN (hypertension) Brother Asthma HTN (hypertension) Brother Asthma HTN (hypertension) Brother Asthma HTN (hypertension) Son Asthma Social History Alcohol intake: current Patient Tobacco Use Status: Never used Tobacco Physical Exam Vital Signs: Last Vital Signs Pulse 68 02/15/25 10:55 BP 122/80 02/15/25 10:55 Pulse Ox 98 02/15/25 10:55 Oxygen Delivery Method Room Air 02/15/25 10:55 BMI result Body Mass Index 22.9 Const General: cooperative, healthy appearing, comfortable and no acute distress Nutritional Appearance: average body habitus Orientation/consciousness: patient oriented x3 Neuro Other: right laterocollis and mild retrocollis torticollis Head tremors Tenderness and tightness in right levator splenius, left occipitalis, semispinalis General: patient oriented x3, gait normal, tone normal, moves all extremities and no focal motor deficits Cognition (Neuro): normal cognition Gait exam (Neuro): Normal gait present Motor exam (neuro): 5/5 motor strength present throughout and Normal motor muscle tone present throughout Coordination: zeclyw-da-juhh test normal Office Procedures Botulinum toxin Injection 65170 - Dystonia Procedure code (CPT) selection complete Office Meds onabotulinumtoxinA 200 unit solution for injection Performing Provider: Nusrat Delgado MD [place] [facility] [place] [facility] Administered by: Nusrat Delgado MD on 02/15/25 11:35 Dose Route Admin Location Dispensed Lot Number Expiration Date [facility] Inventory Control Planner 200 unit IM 200 units [id number] ALLERGAN/BOTOX Total Dispensed Waste 200 units 0 % Comments: see hpi Assessment & Plan Assessment & Plan (1) Cervical dystonia: Code(s): G24.3 - Spasmodic torticollis Category: Medical Plan Patient tolerated the procedure well she will call with any side effects Orders: Orders AMB Botulinum toxin Injection - Patient Supplied N/C Today G24.3 - Spasmodic torticollis Coding Level of Care Code Est Pt Level 1 (87903) Diagnoses Cervical dystonia G24.3 CPT Codes Botox Injection - Botox 4: 93998 - Dystonia ([id number])
[2025-02-15 10:55] VITALS: BP 122/80; PULSE 68; O2SAT 98; BMI 22.9
--- OUTSIDE RECORDS SUMMARY | 2025-02-15 13:54 | XMS_ITS | Clinical Summary ---
Author Organization [facility] Address [address] [place] [id number] Phone Care Team Providers Care Rock Dust Sprayer Name Role Phone Suly Soto NP Primary Care Provider + Social History Tobacco Use Types Packs/Day Years Used Date Smoking Tobacco: Never Assessed Education Answer Date Recorded Are you interested in more education? Not on ron e 01/03/2025 Are you concerned about learning? Not on file 01/03/2025 No 01/03/2025 No 01/03/2025 Digital Access Answer Date Recorded No 01/03/2025 No 01/03/2025 Reliable internet access at home? Not on file 01/03/2025 Device with a working camera? Not on file Comments Unknown Sex and Gender Information Value Date Recorded Sex Assigned at Not on file Legal Sex Female 9:48 AM EST Gender Identity Not on file Sexual Orientation Not on file Plan of Treatment Upcoming Encounters Date Type Department Care Team (Late st Contact Info) Description 07/14/2025 9:00 AM EDT [place] [facility] [place] [facility] [address] [place] [address] Delia Mario MD, PhD [address] [address] [email or web address] Health Maintenance Due Date Last Done Comments Adult Td,Tdap Booster 1961 LIPID PANEL 1961 DEPRESSION SCREENING 1973 SMOKING Hx and SMOKELESS TOB ACCO SCREENING 1974 HEPATITIS C SCREENING 1979 HIV ONE-TIME SCREENING (18-6 5 YEARS) 1979 PAP SMEAR 1982 MAMMOGRAM 2001 COLOGUARD 2006 COLONOSCOPY 2006 COLORECTAL CANCER SCREENING 2006 FIT TEST 2006 FOBT 2006 SIGMOIDOSCOPY 2006 VIRTUAL COLONOSCOPY 2006 PNEUMOCOCCAL VACCINES (50+ y ears) (1 of 1 - PCV) 2011 ZOSTER VACCINES (1 of 2) 2011 INFLUENZA VACCINE (#1) 2024 COVID-19 VACCINE (1 - 2024-2 6 season) 2024 RSV VACCINE (1 - 1-dose 75+ series) 2036 HEPATITIS A VACCINES Aged Out No long er eligible based on patient's age to complete this topic HIB VACCINES Aged Out No longer eligi ble based on patient's age to complete this topic MENINGOCOCCAL VACCINES (ACWY) Aged Out No longer eligible based on patient's age to complete this topic MENINGOCOCCAL VACCINES (B) Aged Out N o longer eligible based on patient's age to complete this topic Medical Devices Not on file [facility] [place] [address] [place] [address] [place] [address] [place] [address] PPO E[place] [address] [address] [place] [address] [place] [address] [address] [place] [address] [place] [address] [address] [place] [address] [place] [address] [address] [place] [address] PPO EPO Care Teams Rock Dust Sprayer Relationship Specialty Start Date End Date Suly Soto NP [address] [place] [id number] PCP - General Nurse Practitioner 06/19/20 Additional Source Comments The information contained in this document represents components of the legal health record. It is not the complete legal health record.[facility]
== END 2025-02-15 11:25 | disposition home or self-care (01) ==
LOC: HO.HSMS 10:49
PROVIDERS: PCP Nurse Practitioner Family; Visit Provider Psychiatry & Neurology Neurology
DX: G24.3 Spasmodic torticollis (principal)
CPT/HCPCS: 64616; 99499

== ENCOUNTER → 2025-02-15 10:48 | Outpatient (BNVA) | payer BC, SELFPAY | PROVIDERS: PCP Nurse Practitioner Family; Visit Provider Psychiatry & Neurology Neurology | DX: G24.3 Spasmodic torticollis (principal) | CPT/HCPCS: 64616; J0585 ==